=== PATIENT | male | born 2005 | race Caucasian/White ===

== ENCOUNTER 2023-02-28 11:33 | Outpatient (REF) | payer OTHER, SELFPAY | END 2023-02-28 11:34 | disposition home or self-care (01) | LOC: HO.10HDL 11:33 | PROVIDERS: Visit Provider Internal Medicine | DX: Z00.01 Encounter for general adult medical examination with abnormal findings (principal); E66.8 Other obesity; E78.00 Pure hypercholesterolemia, unspecified; F25.9 Schizoaffective disorder, unspecified; G47.33 Obstructive sleep apnea (adult) (pediatric); I10 Essential (primary) hypertension; J45.909 Unspecified asthma, uncomplicated; Z91.048 Other nonmedicinal substance allergy status | CPT/HCPCS: 36415; 80053; 80061; 84443; 85025 ==